=== PATIENT | female | born 1965 | race Caucasian/White ===

== ENCOUNTER 2016-10-31 11:22 | Emergency (ER) | payer OTHER, MEDICAID ==
[~2016-10-31] VITALS: Ht 157.5 cm; Wt 85.3 kg
[2016-10-31 11:49] VITALS: BP 100/61
== END 2016-10-31 16:32 | disposition left against medical advice (07) ==
LOC: ER 11:23
DX: M54.5 Low back pain (principal); R51 Headache; Z53.21 Procedure and treatment not carried out due to patient leaving prior to being seen by health care provider